=== PATIENT | female | born 1985 | race Caucasian/White ===

== ENCOUNTER 2017-08-25 15:44 | Observation (INO) ==
[2017-08-25] MEDS ORDERED: 0.9 % Sodium Chloride 1,000 ML IVC ONE (15:46)
[2017-08-25] MEDS ORDERED: Ipratropium/Albuterol Neb 3 ML IH ONE (15:46)
--- NOTE | 2017-08-25 15:49 | Emergency Department Note ---
Disposition Clinical Impression: Tachycardia, Hypoxia Left lower lobe pneumonia Qualifiers: Pneumonia type: due to unspecified organism Qualified Code(s): J18.1 - Lobar pneumonia, unspecified organism Disposition: Admitted As Inpatient Condition: Fair Referrals: Shyanne Funez CNP [Primary Care Provider] - Forms: ED Satisfaction Letter SOB HPI - General Chief Complaint: ED Shortness of Breath/Dyspnea Stated Complaint: Cough, chest pain, SOB Time Seen by Provider: 08/25/17 15:46 Source: patient Mode of arrival: private vehicle Limitations: no limitations Nursing Notes Reviewed: Yes Vital Signs Reviewed: Yes - History of Present Illness Was contacted from the urgent care 3:16 PM that a 31-year-old female patient who presented there with a history of fatigue, nausea, vomiting and diarrhea. She has had 2 days of increased shortness of breath and reports she had some chest tightness and heaviness like she had already embolism in 2007. She has not a couple days after having a section. They noted she is saturating 93% on room air, had a heart rate of 121, respiratory rate of 21, temperature 99.2, blood pressure 107/71. They recommended to her that she come to this emergency Department for CT PE study. Patient arrives here at about 3:40 PM. She relates that she had been had a [employer] gathering and believe she had contracted a viral illness. She started with aching, fevers, chills and generalized malaise on Thursday. She had a little diarrhea on Thursday and has persisted with some nausea but is worse if she tries to have anything solid. She states she has only had liquids now for 3 days. She thought she might have the flu and would get better but her cough and dyspnea have persisted. She states her primary complaint now is just increasing shortness of breath with cough and coughing spells for the last 24 hours. She states she will cough to where she gets a headache and has a hard time breathing. During this time she has chest heaviness and a sitting pressure on her chest. When she does produce some phlegm she states it does have a little blood present. She denies any other sharp or pleuritic chest pains. She has not been having diaphoresis nor abdominal pain. She denies any lower extremity swelling, immobilization or injury. She states she is on methotrexate for arthritis and psoriasis and is thereby somewhat immunosuppressed. She notes she did have the pulmonary embolism in 2007 and was on anticoagulation for one year. She has had no recurrence of other problems. She denies any history of any ongoing respiratory problems. When the patient walked into triage she had a saturation of 86% but on the examination bed she has a saturation of 93% on room air and a heart rate of 120. Pt Subjective Complaint: shortness of breath, cough, chest pain Onset (ago): day(s) Context: recent illness Severity: moderate Consistency/Duration: gradually worsening Improves with: rest Worsens with: exertion, movement, coughing Known history of: PE Associated symptoms: Reports: chest pain, fever, cough, wheezing, sputum production, hemoptysis, nausea/vomiting. Denies: pain with inspiration, orthopnea, lower extremity pain, polyuria, polydipsia, parasthesias, palpitations, diaphoresis, syncope, abdominal pain, rash Treatment prior to arrival: none Cough present: Yes Cough Description: Voluntary, Productive Cough Frequency: Intermittent Sputum production: Yes Sputum Amount: Small Sputum Color: Rico Tinged - Related Data Home oxygen amount: none Home Medications Medication Instructions Recorded Confirmed Folic Acid 1 mg PO 1200 04/09/17 08/25/17 Loratadine [Claritin] 10 mg PO DAILY 04/09/17 08/25/17 Methotrexate [Otrexup] 20 mg PO TU 04/09/17 08/25/17 Venlafaxine HCl [Venlafaxine HCl 150 mg PO DAILY 04/09/17 08/25/17 ER] Citalopram Hydrobromide 40 mg PO HS 07/02/17 08/25/17 [Citalopram HBr] Ergocalciferol (VITAMIN D2) 50,000 unit PO SMITH 07/02/17 08/25/17 [Vitamin D2] Omeprazole [PriLOSEC] 40 mg PO DAILY 07/02/17 08/25/17 Previous Rx's Medication Instructions Recorded Buspirone HCl [Buspar] 15 mg PO TID #90 tablet 03/13/16 Allergies Allergy/AdvReac Type Severity Reaction Status Date / Time No Known Allergies Allergy Verified 08/25/17 15:17 All systems ED: reviewed and negative except as stated. Past Medical History - Past Medical History Attestation: Yes The following information was validated with the patient. Source: patient, old records reviewed, nursing notes reviewed Medical history: Reports: arthritis (Psoriasis), pulmonary embolus, other ( Obesity) Surgical history: Reports: breast surgery (Breast abscesses), , other ( Laparoscopy and laser for endometriosis, ovarian cyst excision, D&C, uterine ablation) Psychiatric history: Reports: anxiety, depression, other - Social History Smoking Status: Never smoker Smokeless Tobacco Status: No Alcohol use: Reports: none Drug use: Reports: none Physical Exam - General Limitations: no limitations General appearance: alert, in no apparent distress - Head Head exam: atraumatic, normocephalic, normal inspection - Eye Eye exam: Present: normal appearance, PERRL, EOMI. Absent: scleral icterus, conjunctival injection - ENT ENT exam: normal exam, normal oropharynx, mucous membranes moist - Neck Neck exam: Present: normal inspection, full ROM, trachea midline. Absent: tenderness, meningismus, lymphadenopathy - Chest Chest inspection: Present: normal inspection, symmetric chest wall rise. Absent : tenderness - Respiratory Respiratory exam: Present: respiratory distress, prolonged expiratory phase. Absent: wheezes, stridor, accessory muscle use - Cardiovascular Cardiovascular exam: Present: regular rate, normal rhythm, tachycardia, normal heart sounds. Absent: JVD - Abdominal Exam Abdominal exam: Present: soft, Non-Tender, normal bowel sounds. Absent: tenderness, distention, guarding, rebound, rigidity - Extremities Exam Extremities exam: Present: normal inspection, full ROM, normal capillary refill. Absent: tenderness, pedal edema, calf tenderness - Expanded Lower Extremity Exam Neurovascular/Tendon exam: Present: normal capillary refill. Absent: motor deficit, sensory deficit, tendon deficit Gait: observed and normal - Back Exam Back exam: Present: normal inspection, full ROM. Absent: tenderness, CVA tenderness (R), CVA tenderness (L) - Neurological Exam Neurological exam: Present: alert, oriented X3 - Psychiatric Psychiatric exam: Present: normal affect, normal mood - Skin Skin exam: Present: warm, dry, intact, normal color Course Course Narrative: 377: Care is discussed with the patient with regards all findings as well as Dr. Lester. She is been started on azithromycin, Rocephin as well as some Toradol for pain. She is correlated for inpatient observation with verbal orders obtained. Vital Signs O2 Sat by Pulse Oximetry 97 08/25/17 15:45 Temperature 100.3 F H 08/25/17 15:59 Pulse Rate 109 08/25/17 16:46 Respiratory Rate 34 08/25/17 16:46 Blood Pressure 118/68 08/25/17 16:46 O2 Sat by Pulse Oximetry 97 08/25/17 16:46 Oxygen Delivery Oxygen Delivery Nasal Cannula Shortness of Breath/Dyspnea - Differential Diagnosis Likely: pneumonia, asthma with exacerbation, pulmonary embolism - Medical Records Medical records reviewed: Yes I reviewed the patient's medical records. - Lab Data Lab results reviewed: Yes I reviewed the patient's lab results. Lab results narrative: Influenza A and influenza B are negative. Result diagrams: 08/25/17 15:58 08/25/17 15:58 Lab Results 08/25/17 08/25/17 08/25/17 Range/Units 15:58 15:58 15:58 WBC 10.1 (4.3-11.1) K/mcL RBC 4.06 (3.82-4.97) M/mcL Hgb 12.3 (11.5-15.4) g/dL Hct 37.1 (35.3-44.9) % MCV 91.4 (83.0-100.0) fL MCH 30.3 (28.0-33.3) pg MCHC 33.2 (31.6-35.5) g/dL RDW 16.0 H (11.5-14.5) % Plt Count 213 (140-400) K/mcL MPV 9.3 L (9.4-12.4) fL Seg Neutrophils % 48.0 % Band Neutrophils % 34.0 H (0-4) % Lymphocytes % 12.0 % Monocytes % 4.0 % Metamyelocytes % 2.0 H (0) % Neutrophils # 8.3 (1.6-8.9) K/mcL Lymphocytes # 1.2 (0.6-4.6) K/mcL Monocytes # 0.4 (0.0-1.3) K/mcL Platelet Estimate Normal (Normal) PT (9.4-12.1) Seconds INR APTT (26.0-36.0) Seconds D-Dimer 2045 H (0-500) ng/mLFEU Sodium 137 (136-145) mEq/L Potassium 3.3 L (3.5-5.1) mEq/L Chloride 102 (98-107) mEq/L Carbon Dioxide 28 (23-29) mEq/L BUN 18 (6-20) mg/dL Creatinine 0.82 (0.60-1.20) mg/dL Est GFR ( Amer) > 60 (> 60) Est GFR (Non-Af Amer) > 60 (> 60) BUN/Creatinine Ratio 22 (6-26) Glucose 112 H (70-105) mg/dL Calculated Osmolality 287 (280-300) Lactic Acid (0.5-2.2) mmol/L Calcium 8.5 L (8.6-10.3) mg/dL Troponin I < 0.03 (< 0.04) ng/mL B-Natriuretic Peptide (Less than 100) pg/mL Serum , Qual (Negative) 08/25/17 08/25/17 08/25/17 Range/Units 15:58 15:58 15:58 WBC (4.3-11.1) K/mcL RBC (3.82-4.97) M/mcL Hgb (11.5-15.4) g/dL Hct (35.3-44.9) % MCV (83.0-100.0) fL MCH (28.0-33.3) pg MCHC (31.6-35.5) g/dL RDW (11.5-14.5) % Plt Count (140-400) K/mcL MPV (9.4-12.4) fL Seg Neutrophils % % Band Neutrophils % (0-4) % Lymphocytes % % Monocytes % % Metamyelocytes % (0) % Neutrophils # (1.6-8.9) K/mcL Lymphocytes # (0.6-4.6) K/mcL Monocytes # (0.0-1.3) K/mcL Platelet Estimate (Normal) PT 15.8 H (9.4-12.1) Seconds INR 1.5 APTT 29.9 (26.0-36.0) Seconds D-Dimer (0-500) ng/mLFEU Sodium (136-145) mEq/L Potassium (3.5-5.1) mEq/L Chloride (98-107) mEq/L Carbon Dioxide (23-29) mEq/L BUN (6-20) mg/dL Creatinine (0.60-1.20) mg/dL Est GFR ( Amer) (> 60) Est GFR (Non-Af Amer) (> 60) BUN/Creatinine Ratio (6-26) Glucose (70-105) mg/dL Calculated Osmolality (280-300) Lactic Acid 1.1 (0.5-2.2) mmol/L Calcium (8.6-10.3) mg/dL Troponin I (< 0.04) ng/mL B-Natriuretic Peptide 23 (Less than 100) pg/mL Serum , Qual (Negative) 08/25/17 Range/Units 15:58 WBC (4.3-11.1) K/mcL RBC (3.82-4.97) M/mcL Hgb (11.5-15.4) g/dL Hct (35.3-44.9) % MCV (83.0-100.0) fL MCH (28.0-33.3) pg MCHC (31.6-35.5) g/dL RDW (11.5-14.5) % Plt Count (140-400) K/mcL MPV (9.4-12.4) fL Seg Neutrophils % % Band Neutrophils % (0-4) % Lymphocytes % % Monocytes % % Metamyelocytes % (0) % Neutrophils # (1.6-8.9) K/mcL Lymphocytes # (0.6-4.6) K/mcL Monocytes # (0.0-1.3) K/mcL Platelet Estimate (Normal) PT (9.4-12.1) Seconds INR APTT (26.0-36.0) Seconds D-Dimer (0-500) ng/mLFEU Sodium (136-145) mEq/L Potassium (3.5-5.1) mEq/L Chloride (98-107) mEq/L Carbon Dioxide (23-29) mEq/L BUN (6-20) mg/dL Creatinine (0.60-1.20) mg/dL Est GFR ( Amer) (> 60) Est GFR (Non-Af Amer) (> 60) BUN/Creatinine Ratio (6-26) Glucose (70-105) mg/dL Calculated Osmolality (280-300) Lactic Acid (0.5-2.2) mmol/L Calcium (8.6-10.3) mg/dL Troponin I (< 0.04) ng/mL B-Natriuretic Peptide (Less than 100) pg/mL Serum , Qual Negative (Negative) - Radiology Data Radiology results reviewed: Yes I reviewed the patient's radiology results. Impressions Chest X-Ray 08/25/17 15:46 IMPRESSION: Grossly negative chest with limited assessment of the costophrenic angles. RECOMMENDATIONS: Consider dedicated PA and lateral views for more optimal assessment as clinically warranted. D/ / Makenna Conte MD / Makenna Conte MD Interpreting Provider: Makenna Conte MD Chest CTA 08/25/17 15:47 IMPRESSION: No evidence of a pulmonary embolus. Large confluent left lower lobe pneumonia. Follow-up to complete clearing is recommended. D/ / Wilman Blas MD / Wilman Blas MD Interpreting Provider: Wilman Blas MD - EKG Data EKG attestation: Yes I reviewed and interpreted this EKG. EKG shows normal: Reports: sinus rhythm, axis, intervals, QRS complexes, ST-T waves Rate: Reports: tachycardia (116) P waves: Reports: LAE Interpretation: Reports: no acute changes, nonspecific ST-T wave changes
[2017-08-25 16:08] LABS: Hematocrit 37.1 % (35.3-44.9); Hemoglobin 12.3 g/dL (11.5-15.4); Mean Corpuscular HGB Conc 33.2 g/dL (31.6-35.5); Mean Corpuscular Hemoglobin 30.3 pg (28.0-33.3); Mean Corpuscular Volume 91.4 fL (83.0-100.0); Mean Platelet Volume 9.3 fL (9.4-12.4); Monocytes # 0.4 K/mcL (0.0-1.3); Platelet Count 213 K/mcL (140-400); Red Blood Count 4.06 M/mcL (3.82-4.97)
[2017-08-25 16:22] LABS: INR 1.5; Prothrombin Time 15.8 Seconds (9.4-12.1)
[2017-08-25 16:25] LABS: Activated Partial Thrombo Time 29.9 Seconds (26.0-36.0)
[2017-08-25 16:30] LABS: BUN/Creatinine Ratio 22 (6-26); Blood Urea Nitrogen 18 mg/dL (6-20); Calcium 8.5 mg/dL (8.6-10.3); Carbon Dioxide 28 mEq/L (23-29); Chloride 102 mEq/L (98-107); Glucose 112 mg/dL (70-105); Osmolality,Calculated 287 (280-300); Potassium 3.3 mEq/L (3.5-5.1); Sodium 137 mEq/L (136-145); eGFR For African Americans > 60 (> 60); eGFR For Non-African Americans > 60 (> 60)
[2017-08-25 16:31] LABS: Troponin I < 0.03 ng/mL (< 0.04)
[2017-08-25 16:47] LABS: Lymphocytes # 1.2 K/mcL (0.6-4.6); Neutrophils # 8.3 K/mcL (1.6-8.9); Platelet Estimate Normal (Normal)
[2017-08-25] MEDS ORDERED: Ondansetron 4 MG/2 ML VIAL IVP ONE (17:08)
[2017-08-25] MEDS ORDERED: Ketorolac 30 MG/ML VIAL IVP ONE (17:08)
[2017-08-25] MEDS ORDERED: Azithromycin 500 MG in D5% in Water 250 ML IVPB ONE (17:08)
[2017-08-25] MEDS ORDERED: *HR* Methotrexate 2.5 MG TABLET PO SCH (18:50)
[2017-08-25] MEDS ORDERED: *HR* HYDROcodone/Acet 5/325 mg TABLET PO PRN (18:50)
[2017-08-25] MEDS ORDERED: Ketorolac 30 MG/ML VIAL IVP PRN (18:50)
[2017-08-25] MEDS ORDERED: Naloxone 0.4 MG/ML INJ IVP PRN (18:50)
[2017-08-25] MEDS ORDERED: Albuterol 2.5 MG/3 ML NEBULIZER IH PRN (18:50)
[2017-08-25] MEDS: Ipratropium/Albuterol Neb 3 ML IH SCH (22:06)
[2017-08-26] MEDS: Ipratropium/Albuterol Neb 3 ML IH SCH ×2 (03:12→10:36)
[2017-08-26] MEDS: *HR* Enoxaparin 40 MG/0.4 ML SYRINGE SQ SCH (06:58)
[2017-08-26] MEDS: Venlafaxine XR (24 HR) 150 MG CAP.ER.24H PO SCH (08:43)
[2017-08-26] MEDS: Loratadine 10 MG TABLET PO SCH (08:43)
[2017-08-26] MEDS ORDERED: METHOTREXATE 2.5 MG PO SCH (09:45)
[2017-08-26] MEDS ORDERED: Folic Acid 1 MG TABLET PO SCH (12:00)
--- NOTE | 2017-08-26 12:04 | Internal Med History&Physical ---
Date of Encounter: 08/26/17 Time of Encounter: 11:35 Assessment and Plan (1) Left lower lobe pneumonia Current visit: Yes Status: Acute She has been started on Rocephin and Zithromax. She will continue these with lactobacillus. Qualifiers: Pneumonia type: due to unspecified organism Qualified Code(s): J18.1 - Lobar pneumonia, unspecified organism (2) Hypoxia Current visit: Yes Status: Acute Suspect secondary to pneumonia. We will check room air oximetry prior to discharge. (3) Hypokalemia Current visit: Yes Status: Acute We will give supplemental potassium and monitor labs. Internal Medicine - H&P: HPI Chief complaint: Weakness, cough, dyspnea Admitted From: Emergency Dept Plans for Post Hospital Care: Home History of present illness: Ms. Lewis is a 31 year old female who came to emergency room complaining of cough weakness dyspnea and diarrhea onset several days previously. She was concerned she might have recurred pulmonary embolus that occurred following a C- section in 2007. She was evaluated in emergency room and found to have left lower lobe pneumonia. CTA showed no evidence of pulmonary embolism. [facility]. Her respiratory history is significant for being a lifelong nonsmoker. She denies chronic lung disease. She was recently diagnosed with SHIRLENE but has not yet been fitted for BiPAP/CPAP. Past Med Surg Social Fam HX - Past Medical History Medical history: arthritis, pulmonary embolus, other Psychiatric history: anxiety, depression, other - Past Surgical History Surgical History: breast surgery, , other - Social History Smoking Status: Never smoker Smokeless Tobacco Status: No Alcohol use: none Drug use: none - Family History Mother Hx Family Cardiac Disorders: Yes (heart murmur) Internal Medicine - H&P: Meds Buspirone HCl [Buspar] 15 mg PO TID #90 tablet 03/13/16 [Rx] Folic Acid 1 mg PO 1200 04/09/17 [History] Loratadine [Claritin] 10 mg PO DAILY 04/09/17 [History] Methotrexate [Otrexup] 20 mg PO TU 04/09/17 [History] Venlafaxine HCl [Venlafaxine HCl ER] 150 mg PO DAILY 04/09/17 [History] Citalopram Hydrobromide [Citalopram HBr] 40 mg PO HS 07/02/17 [History] Ergocalciferol (VITAMIN D2) [Vitamin D2] 50,000 unit PO SMITH 07/02/17 [History] Omeprazole [PriLOSEC] 40 mg PO DAILY 07/02/17 [History] 3 Allergy/AdvReac Type Severity Reaction Status Date / Time No Known Allergies Allergy Verified 08/25/17 15:17 All Systems PM: A 10-system review of systems was performed and is negative for pertinent findings except as documented above in the HPI. Review of systems: Gen.: She states her weight has increased 80 pounds in the past year Cardiovascular: She denies CA hypertension heart failure or angina. She had pulmonary embolism as per above Respiratory: As per history of present illness GI: She has GERD. She denies disorders of her liver gallbladder or exocrine pancreas : She denies hematuria dysuria or kidney stones Neurologic: She denies large distribution strokes or seizures. Endocrine: She denies diabetes thyroid disease or hyperlipidemia Hematology/oncology: She denies blood disorders cancers or anemia Psychiatric: She has OCD and JOE. [place] skeletal: She has psoriatic arthritis and vitamin D deficiency - Constitutional Vitals: Temp Pulse Resp BP Pulse Ox 97.6 F 90 16 113/70 97 08/26/17 11:01 08/26/17 11:01 08/26/17 11:01 08/26/17 11:01 08/26/17 11:47 Exam: Gen.: She is a well-developed morbidly obese female lying in bed who appears in no acute distress HEENT: Head is atraumatic and normocephalic. Eyes: EOMI. There is no scleral icterus. Mouth: Mucosa is moist. Neck: Supple and nontender. There is no thyromegaly or adenopathy noted. Heart: Regular without murmurs gallops or ectopics Lungs: No wheezes or crackles are heard. She has slight egophony in the left base posteriorly. Abdomen: Soft and nontender. No masses or guarding are noted. Extremities: There is no cyanosis edema or clubbing noted. Dorsalis pedis and posttibial pulses are trace to 1+ palpable bilaterally. Neurologic: Mental status: She is talkative and a good historian. Cranial nerves: Smile is symmetric. Forehead wrinkles bilaterally. Tongue protrudes midline. EOMI. Motor: There is no pronator drift. Cerebellar: Finger to nose is intact bilaterally. Skin: Warm and dry. She has several psoriasis skin lesions scattered over various parts of her body. Internal Med - H&P Results - Labs CBC & Chem 7: 08/25/17 15:58 08/25/17 15:58
[2017-08-26] MEDS ORDERED: Azithromycin 500 MG in D5% in Water 250 ML IVPB SCH (13:00)
--- NOTE | 2017-08-26 19:56 | Electrocardiograph Report ---
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
[2017-08-26] MEDS: Lactobacillus 1 EACH CAP.SPRINK PO SCH (20:43)
[2017-08-27] MEDS: *HR* Enoxaparin 40 MG/0.4 ML SYRINGE SQ SCH (05:59)
[2017-08-27 06:52] VITALS: BP 104/70
[2017-08-27 06:52] LABS: Basophils % 0.7 %; Eosinophils # 0.2 K/mcL (0.0-0.6); Eosinophils % 3.5 %; Hematocrit 34.4 % (35.3-44.9); Hemoglobin 10.9 g/dL (11.5-15.4); Immature Granulocytes % 0.7 % (0-4); Lymphocytes # 1.7 K/mcL (0.6-4.6); Mean Corpuscular HGB Conc 31.7 g/dL (31.6-35.5); Mean Corpuscular Hemoglobin 29.3 pg (28.0-33.3); Mean Corpuscular Volume 92.5 fL (83.0-100.0); Mean Platelet Volume 9.9 fL (9.4-12.4); Monocytes # 0.4 K/mcL (0.0-1.3); Monocytes % 8.9 %; Platelet Count 254 K/mcL (140-400); Red Blood Count 3.72 M/mcL (3.82-4.97); Red Cell Distribution Width 16.5 % (11.5-14.5); Segmented Neutrophils % 46.2 %
[2017-08-27 07:09] LABS: BUN/Creatinine Ratio 23 (6-26); Blood Urea Nitrogen 14 mg/dL (6-20); Calcium 8.4 mg/dL (8.6-10.3); Carbon Dioxide 25 mEq/L (23-29); Chloride 109 mEq/L (98-107); Glucose 83 mg/dL (70-105); Osmolality,Calculated 292 (280-300); Potassium 3.5 mEq/L (3.5-5.1); Sodium 141 mEq/L (136-145); eGFR For African Americans > 60 (> 60); eGFR For Non-African Americans > 60 (> 60)
[2017-08-27] MEDS: Lactobacillus 1 EACH CAP.SPRINK PO SCH (08:02)
[2017-08-27] MEDS: Loratadine 10 MG TABLET PO SCH (08:03)
[2017-08-27] MEDS: Venlafaxine XR (24 HR) 150 MG CAP.ER.24H PO SCH (08:03)
--- NOTE | 2017-08-27 09:58 | Discharge Summary ---
Date of Encounter: 08/27/17 Time of Encounter: 09:50 - Discharge Diagnosis (1) Left lower lobe pneumonia Priority: Primary Status: Acute Qualifiers: Pneumonia type: due to unspecified organism Qualified Code(s): J18.1 - Lobar pneumonia, unspecified organism (2) Hypoxia Priority: Secondary Status: Acute (3) Hypokalemia Priority: Secondary Status: Resolved Hospital course: Ms. Lewis is a 31 year old female who came to emergency room complaining of cough weakness dyspnea and diarrhea onset several days previously. She was concerned she might have recurred pulmonary embolus that occurred following a C- section in 2007. She was evaluated in emergency room and found to have left lower lobe pneumonia. CTA showed no evidence of pulmonary embolism. She was admitted to [facility] floor for ongoing care needs. Initial orders were written by the emergency room physician. I saw her on August 26 and performed a history and physical. She was started on Rocephin and Zithromax with lactobacillus. She had clinical improvement with resolution of bandemia by the following day. She remained afebrile the last 24 hours of hospitalization. She will continue with antibiotic and probiotic for 5 additional days at discharge. Supplemental potassium was given and hypokalemia resolved. There were no new problems and on August 27 she felt improved and stable for discharge home. She will follow with her PCP Shyanne Funez CNP within 1 week. Room air oximetry be checked on 6 minute walk prior to discharge. - Time Spent with Patient Total time spent providing and/or coordinating discharge services: - Discharge Medications Prescriptions: Cefuroxime PO [Ceftin] 500 mg PO Q12HR #10 tablet Azithromycin [Zithromax] 250 mg PO DAILY #5 tablet Lactobacillus [Culturelle] 1 each PO BID #10 cap.[email or web address] Home Medications: Buspirone HCl [Buspar] 15 mg PO TID #90 tablet 03/13/16 [Rx] Folic Acid 1 mg PO 1200 04/09/17 [History] Loratadine [Claritin] 10 mg PO DAILY 04/09/17 [History] Methotrexate [Otrexup] 20 mg PO TU 04/09/17 [History] Venlafaxine HCl [Venlafaxine HCl ER] 150 mg PO DAILY 04/09/17 [History] Citalopram Hydrobromide [Citalopram HBr] 40 mg PO HS 07/02/17 [History] Ergocalciferol (VITAMIN D2) [Vitamin D2] 50,000 unit PO SMITH 07/02/17 [History] Omeprazole [PriLOSEC] 40 mg PO DAILY 07/02/17 [History] Azithromycin [Zithromax] 250 mg PO DAILY #5 tablet 08/27/17 [Rx] Cefuroxime PO [Ceftin] 500 mg PO Q12HR #10 tablet 08/27/17 [Rx] Lactobacillus [Culturelle] 1 each PO BID #10 cap.sprink 08/27/17 [Rx] Allergies/Adverse Reactions: 3 Allergy/AdvReac Type Severity Reaction Status Date / Time No Known Allergies Allergy Verified 08/25/17 15:17 Date of admission: 08/25/17 18:19 Primary care physician: Shyanne Funez CNP - Constitutional Vitals: Temp Pulse Resp BP Pulse Ox 97.6 F 83 16 104/70 96 08/27/17 06:50 08/27/17 06:50 08/27/17 09:24 08/27/17 06:50 08/27/17 09:24 - Patient Status Disposition: Home, Self-Care Condition: Fair Overall status at discharge: patient is progressing back to baseline - Discharge Instructions Follow Up With: Shyanne Funez CNP [Primary Care Provider] - 1 week - Diet and Activity Activity: resume usual activities as tolerated Diet: advance to your usual diet
== END 2017-08-27 11:00 | disposition home or self-care (01) ==
LOC: INPPIK 15:44 → EMEROOPIK 15:44 → INPPIK 19:05
PROVIDERS: ADMIT Internal Medicine; ATTEND Internal Medicine